=== PATIENT | female | born 1950 | race Two or more races ===

== ENCOUNTER 2017-09-27 16:29 | Outpatient (CLI) | payer MEDICARE, OTHER ==
[2017-09-27 17:39] LABS: EOSINOPHILS % (AUTO) 0.3 % (0.0-6.0); HEMATOCRIT 41 % (33-45); HEMOGLOBIN 13.7 g/dL (11.5-14.8); LYMPHOCYTES % (AUTO) 20.5 % (20.0-44.0); MEAN CORPUSCULAR HEMOGLOBIN 28 PG (26.0-33.0); MEAN CORPUSCULAR HGB CONC 34 g/dl (31.0-36.0); MEAN CORPUSCULAR VOLUME 83 fL (82-100); MONOCYTES # (AUTO) 1.5 /CMM (0.1-1.30); MONOCYTES % (AUTO) 10.1 % (2.0-12.0); NEUTROPHILS % (AUTO) 69.1 % (43.0-81.0); PLATELET COUNT (AUTO) 203 /CMM (150-450); RDW COEFFICIENT OF VARIATION 14.6 (11.5-15.0); RED BLOOD CELL COUNT(AUTO) 4.91 MIL/uL (4.0-5.2); WHITE BLOOD COUNT (AUTO) 14.5 K/uL (4.3-11.0)
[2017-09-27 17:55] LABS: ALBUMIN 3.6 g/dL (3.4-5.0); CALCIUM, SERUM 9.2 mg/dL (8.5-10.1); CREATININE 0.7 mg/dL (0.6-1.3)
== END 2017-09-27 23:59 | disposition home or self-care (01) ==
LOC: LAB 16:29
PROVIDERS: ATTEND Internal Medicine Cardiovascular Disease
DX: I51.7 Cardiomegaly (principal); I70.0 Atherosclerosis of aorta; J11.1 Influenza due to unidentified influenza virus with other respiratory manifestations; Z95.1 Presence of aortocoronary bypass graft
CPT/HCPCS: 36415; 71046; 80053-TC; 85025-TC

== ENCOUNTER 2017-10-17 07:27 | Day surgery (SDC) | payer MEDICARE, OTHER ==
[2017-10-17] MEDS ORDERED: BUPIVACAINE 0.5 % PF 150 MG/30 ML VIAL ONE (08:09)
[2017-10-17] MEDS ORDERED: DEXAMETHASONE SOD PHOSPHATE 10 MG/ML VIAL ONE (08:09)
[2017-10-17] MEDS ORDERED: IOHEXOL 0 ML IV ONE (08:09)
[2017-10-17] MEDS ORDERED: BETA ACET/BET NA PHOS MDV 6 MG/ML VIAL ONE (08:42)
== END 2017-10-17 09:50 | disposition home or self-care (01) ==
LOC: DS 07:27
PROVIDERS: ATTEND Anesthesiology
DX: M17.11 Unilateral primary osteoarthritis, right knee (principal); E11.9 Type 2 diabetes mellitus without complications; I48.91 Unspecified atrial fibrillation; I50.9 Heart failure, unspecified; I10 Essential (primary) hypertension; I27.20 Pulmonary hypertension, unspecified; M25.561 Pain in right knee
CPT/HCPCS: 73560-TC; A6209; J0702; J1100; J3490; Q9967; Z7610

== ENCOUNTER 2017-10-30 20:15 | Emergency (ER) | payer MEDICARE, OTHER ==
[~2017-10-30] VITALS: Ht 157.5 cm; Wt 89.4 kg
[2017-10-30 20:39] VITALS: BP 137/68
[2017-10-30] MEDS ORDERED: ACETAMINOPHEN W/ CODEINE#3 1 EA TABLET PO ONE (21:30)
== END 2017-10-30 21:09 | disposition home or self-care (01) ==
LOC: ER 20:22
DX: S20.211A Contusion of right front wall of thorax, initial encounter (principal); I10 Essential (primary) hypertension; Z95.2 Presence of prosthetic heart valve; W01.0XXA Fall on same level from slipping, tripping and stumbling without subsequent striking against object, initial encounter; Y93.E1 Activity, personal bathing and showering; Y92.89 Other specified places as the place of occurrence of the external cause; Y99.8 Other external cause status
CPT/HCPCS: A4606; Z7610

== ENCOUNTER 2017-12-06 07:25 | Day surgery (SDC) | payer MEDICARE, OTHER ==
[2018-04-03] MEDS ORDERED: METF-440 PO (08:15)
== END 2017-12-06 09:55 | disposition home or self-care (01) ==
LOC: DS 07:25
PROVIDERS: ATTEND Anesthesiology
DX: M17.0 Bilateral primary osteoarthritis of knee (principal); I10 Essential (primary) hypertension; E11.9 Type 2 diabetes mellitus without complications; I48.91 Unspecified atrial fibrillation; I50.9 Heart failure, unspecified; F17.200 Nicotine dependence, unspecified, uncomplicated; G47.33 Obstructive sleep apnea (adult) (pediatric); I27.20 Pulmonary hypertension, unspecified; Z95.2 Presence of prosthetic heart valve; Z79.899 Other long term (current) drug therapy; Z98.890 Other specified postprocedural states
CPT/HCPCS: 20610; 73560 ×2; 82962; A6209; Z7610

== ENCOUNTER 2018-03-28 14:35 | Outpatient (CLI) | payer MEDICARE, OTHER ==
[2018-03-28 17:03] LABS: BASOPHILS % (AUTO) 0.4 % (0.0-2.0); EOSINOPHILS % (AUTO) 1.2 % (0.0-6.0); HEMATOCRIT 45 % (33-45); HEMOGLOBIN 14.5 g/dL (11.5-14.8); LYMPHOCYTES # (AUTO) 2.9 /CMM (0.8-4.8); LYMPHOCYTES % (AUTO) 23.2 % (20.0-44.0); MEAN CORPUSCULAR HEMOGLOBIN 28 PG (26.0-33.0); MEAN CORPUSCULAR HGB CONC 32 g/dl (31.0-36.0); MEAN CORPUSCULAR VOLUME 86 fL (82-100); MONOCYTES # (AUTO) 0.8 /CMM (0.1-1.30); MONOCYTES % (AUTO) 6.6 % (2.0-12.0); NEUTROPHILS # (AUTO) 8.6 /CMM (1.8-8.9); NEUTROPHILS % (AUTO) 68.6 % (43.0-81.0); PLATELET COUNT (AUTO) 281 /CMM (150-450); RDW COEFFICIENT OF VARIATION 14.2 (11.5-15.0); RED BLOOD CELL COUNT(AUTO) 5.27 MIL/uL (4.0-5.2); WHITE BLOOD COUNT (AUTO) 12.6 K/uL (4.3-11.0)
[2018-03-28 17:21] LABS: DIGOXIN 0.73 ng/mL (0.90-2.00)
[2018-03-28 17:29] LABS: ALBUMIN 3.7 g/dL (3.4-5.0); BILIRUBIN,TOTAL 0.7 mg/dL (0.2-1.0); CALCIUM, SERUM 9.1 mg/dL (8.5-10.1); CREATININE 0.7 mg/dL (0.6-1.3); POTASSIUM 3.9 mmol/L (3.5-5.1); TOTAL PROTEIN, SERUM 8.1 g/dL (6.4-8.2)
== END 2018-03-28 23:59 | disposition home or self-care (01) ==
LOC: LAB 14:35
PROVIDERS: ATTEND Internal Medicine Cardiovascular Disease
DX: I11.0 Hypertensive heart disease with heart failure (principal); I50.9 Heart failure, unspecified; I48.91 Unspecified atrial fibrillation; J90 Pleural effusion, not elsewhere classified
CPT/HCPCS: 36415; 71046; 80053-TC; 80162-TC; 83880; 85025-TC

== ENCOUNTER 2018-04-02 19:04 | Inpatient (IN) | payer MEDICARE, OTHER ==
[~2018-04-02] VITALS: Ht 160 cm; Wt 84.8 kg
--- NOTE | 2018-04-02 19:04 | NUR ---
BB FAMILY; "SOB AND CHEST PAIN X 1 WEEK" VSS NO ACUTE DISTRESS AT THIS TIME A/OX4 ABLE TO MAKE NEEDS KNOWN. FAMILY AT BEDSIDE. BREATHING SHALLOW BUT OTHERWISE RATE WNL. WILL CONTINUE TO MONITOR FOR ANY CHANEGS DURING THE SHIFT.
[2018-04-02] MEDS ORDERED: ASPIRIN 325 MG TABLET PO ONE (19:30)
[2018-04-02] MEDS ORDERED: NITROGLYCERIN PACKET 1 GM PACKET TD ONE (19:30)
[2018-04-02 19:33] LABS: BASOPHILS # (AUTO) 0.1 /CMM (0.0-0.2); BASOPHILS % (AUTO) 0.8 % (0.0-2.0); EOSINOPHILS % (AUTO) 1.3 % (0.0-6.0); HEMATOCRIT 44 % (33-45); LYMPHOCYTES # (AUTO) 2.8 /CMM (0.8-4.8); LYMPHOCYTES % (AUTO) 25.4 % (20.0-44.0); MEAN CORPUSCULAR HEMOGLOBIN 26 PG (26.0-33.0); MEAN CORPUSCULAR HGB CONC 32 g/dl (31.0-36.0); MEAN CORPUSCULAR VOLUME 82 fL (82-100); MONOCYTES # (AUTO) 0.9 /CMM (0.1-1.30); NEUTROPHILS # (AUTO) 7.1 /CMM (1.8-8.9); NEUTROPHILS % (AUTO) 64.5 % (43.0-81.0); PLATELET COUNT (AUTO) 223 /CMM (150-450); RDW COEFFICIENT OF VARIATION 13.5 (11.5-15.0); RED BLOOD CELL COUNT(AUTO) 5.35 MIL/uL (4.0-5.2)
[2018-04-02] MEDS ORDERED: ASPIRIN 325 MG TABLET ONE (19:36)
[2018-04-02] MEDS ORDERED: NITROGLYCERIN PACKET 1 GM PACKET ONE (19:36)
[2018-04-02 19:46] LABS: CARBON DIOXIDE 26 mmol/L (21-32); CHLORIDE 103 mmol/L (98-107); CREATININE 0.9 mg/dL (0.6-1.3); GLUCOSE 119 mg/dL (74-106); SODIUM SERUM 137 mmol/L (136-145); UREA NITROGEN, BLOOD 10 mg/dL (7-18)
[2018-04-02 19:48] LABS: INR 1.15 (0.85-1.15)
[2018-04-02 19:53] LABS: TROPONIN I < 0.017 ng/mL (0.00-0.056)
[2018-04-02 20:00] LABS: ALANINE AMINOTRANSFERASE 14 U/L (12-78); ALBUMIN 3.5 g/dL (3.4-5.0); ALKALINE PHOSPHATASE 56 U/L (46-116); ASPARTATE AMINOTRANSFERASE 16 U/L (15-37); BILIRUBIN,DIRECT 0.3 mg/dL (0.0-0.2); BILIRUBIN,TOTAL 0.8 mg/dL (0.2-1.0); TOTAL PROTEIN, SERUM 7.9 g/dL (6.4-8.2)
--- NOTE | 2018-04-02 20:11 | NUR ---
PLANT HEALTH MANAGER NOTES PT ARRIVED ON TO THE UNIT AT 2010 VIA GURNEY. PT ABLE TO AMBULATE FROM GURNEY TO BED WITH STEADY GAIT. PT COMPLAINS OF CHEST PAIN LASTING FOR A WEEK AND SOB LASTING THE LAST 3-4 DAYS. PT HAS A RIGHT AC #20 IV, INTACT AND PATENT. ALL PATIENT BELONGINGS ARE ACCOUNTED FOR A DOCUMENTED PT TELE MONITORED AT AFIB RATE IN THE 70S. NO COMPLAINTS OF PAIN OR DISTRESS AT THIS TIME. PT DOES STATE THAT SHE FEELS REFLIEF FROM HER SOB WITH THE 2L OF O2 VIA NASAL CANNULA. ORIENTED PATIENT TO THE USE OF THE CALL LIGHT. SAFETY PRECAUTIONS IN PLACE, BED IN LOWEST LOCKED POSITION, X2 SIDE RAILS UP, AND CALL LIGHT WITHIN REACH. WILL CONTINUE TO MONITOR AND UPDATE PT ORDERS FROM THE MD BECOME AVAILABLE. Addendum: 04/02/18 at 2317 by YOLI ALEMAN RN INCORRECT TIME 2110
--- NOTE | 2018-04-02 20:18 | NUR ---
GAVE REPORT TO YOLI
[2018-04-02 21:30] VITALS: BP 108/55
[2018-04-02] MEDS ORDERED: FUROSEMIDE 40 MG/4 ML VIAL IV ONE (23:00)
[2018-04-02] MEDS ORDERED: Z GUARD REMEDY 2 OZ OINT TP PRN (23:00)
[2018-04-02] MEDS ORDERED: HYDROCODONE/APAP 5/325MG 1 EACH TABLET PO PRN (23:00)
[2018-04-02] MEDS ORDERED: ACETAMINOPHEN 325 MG TABLET PO PRN (23:00)
[2018-04-02] MEDS ORDERED: MAGNESIUM HYDROXIDE 30 ML UDC PO PRN (23:00)
[2018-04-02] MEDS ORDERED: MAG HYDROX/AL HYDROX/SIMETH 30 ML UDC PO PRN (23:00)
[2018-04-02] MEDS ORDERED: ONDANSETRON HCL/PF 4 MG/2 ML VIAL IVP PRN (23:00)
[2018-04-02] MEDS ORDERED: ENOXAPARIN SODIUM 40 MG/0.4 ML DISP.SYRIN SQ SCH (23:00)
[2018-04-02] MEDS ORDERED: MORPHINE SULFATE INJ 2 MG/ML DISP.SYRIN IV PRN (23:00)
--- NOTE | 2018-04-02 23:08 | NUR ---
RN NOTES PT REFUSED LOVENOX SATING SHE TAKES PLAVIX DAILY. PT ALSO REFUSED LASIX STATING SHE TAKES THEM AT HOME AND DOESN'T WANT TO TAKE THEM AT NIGHT. EDUCATED THE PATIENT ON THE IMPORTANCE OF BRINGING IN HOME MEDICATION LIST SO THAT A MEDICATION RECONCILIATION CAN BE COMPLETED. PT STATED THAT SHE WILL HAVE HER BRING THEM IN TOMORROW MORNING.
--- NOTE | 2018-04-02 23:55 | NUR ---
RN NOTES PT STATED THAT SHE TAKES ATIVAN AT HOME. SPOKE WITH WORD PROCESSOR TECHNICIAN KANIKA, GAVE ONE TIME ORDER OF ATIVAN PO 0.50MG. WILL ADMINISTER AND CONTINUE TO MONITOR.
[2018-04-03] VITALS (7 sets, daily range): BP systolic 96–124; BP diastolic 46–70
[2018-04-03] MEDS ORDERED: LORAZEPAM 0.5 MG TABLET PO ONE
[2018-04-03] MEDS ORDERED: LORAZEPAM 0.5 MG TABLET PO PRN
--- NOTE | 2018-04-03 06:40 | NUR ---
RN CLOSING NOTES PT RESTING IN CHAIR AT BEDSIDE. NO COMPLAINTS OF PAIN, SOB OR DISTRESS OVERNIGHT. PT HAS A RIGHT AC #20 IV, INTACT AND PATENT. PT TELE MONITORED AT AFIB RATE IN THE 70S. PT ON 2L VIA NASAL CANNULA. SAFETY PRECAUTIONS IN PLACE, BED IN LOWEST LOCKED POSITION, X2 SIDE RAILS UP, AND CALL LIGHT WITHIN REACH. WILL ENDORSE TO DAY SHIFT NURSE FOR CONTINUITY OF CARE.
[2018-04-03 07:02] LABS: BASOPHILS % (AUTO) 0.4 % (0.0-2.0); EOSINOPHILS % (AUTO) 2.1 % (0.0-6.0); HEMATOCRIT 40 % (33-45); HEMOGLOBIN 13.1 g/dL (11.5-14.8); LYMPHOCYTES # (AUTO) 2.9 /CMM (0.8-4.8); LYMPHOCYTES % (AUTO) 27.9 % (20.0-44.0); MEAN CORPUSCULAR HEMOGLOBIN 28 PG (26.0-33.0); MEAN CORPUSCULAR HGB CONC 33 g/dl (31.0-36.0); MEAN CORPUSCULAR VOLUME 85 fL (82-100); MONOCYTES # (AUTO) 0.9 /CMM (0.1-1.30); MONOCYTES % (AUTO) 8.5 % (2.0-12.0); NEUTROPHILS # (AUTO) 6.4 /CMM (1.8-8.9); NEUTROPHILS % (AUTO) 61.1 % (43.0-81.0); PLATELET COUNT (AUTO) 194 /CMM (150-450); RDW COEFFICIENT OF VARIATION 14.8 (11.5-15.0); RED BLOOD CELL COUNT(AUTO) 4.75 MIL/uL (4.0-5.2); WHITE BLOOD COUNT (AUTO) 10.5 K/uL (4.3-11.0)
[2018-04-03 07:25] LABS: CALCIUM, SERUM 8.5 mg/dL (8.5-10.1); CREATININE 0.7 mg/dL (0.6-1.3); PHOSPHORUS 4.3 mg/dL (2.5-4.9); POTASSIUM 4.2 mmol/L (3.5-5.1)
[2018-04-03 07:28] LABS: THYROID STIMULATING HORMONE 2.245 uIU/mL (0.358-3.74)
[2018-04-03] MEDS ORDERED: FURO40TA5 PO (08:15)
[2018-04-03] MEDS ORDERED: DIGO125T PO (08:15)
[2018-04-03] MEDS ORDERED: METH5TAB6 PO (08:15)
[2018-04-03] MEDS ORDERED: ESCI20TA PO (08:15)
[2018-04-03] MEDS ORDERED: POTA20TA83 PO (08:15)
[2018-04-03] MEDS ORDERED: ESOM40CA PO (08:15)
[2018-04-03] MEDS ORDERED: PANT40TA4 PO (08:15)
[2018-04-03] MEDS ORDERED: METO-356 PO (08:15)
[2018-04-03] MEDS ORDERED: METF500T6 PO (08:15)
[2018-04-03] MEDS ORDERED: LORA1TAB PO (08:15)
[2018-04-03] MEDS ORDERED: DRON400T2 PO (08:15)
[2018-04-03] MEDS ORDERED: ATOR40TA PO (08:15)
--- NOTE | 2018-04-03 09:00 | NUR ---
TELE OPENING NOTES PT IS AWAKE IN BED, A&O X4, COMPLAINS OF MILD CHEST PAIN. PT IS ON 2L NASAL CANNULA. TELE MONITOR INTACT WITH READINGS OF AFIB 84. PT IS AMBULATORY, AND HAS INTACT SKIN. IV SITE INTACT AND PATENT ON RIGHT AC. WILL FOLLOW UP WITH PT CHEST PAIN AND MONITOR PATIENT THROUGHOUT SHIFT.
[2018-04-03] MEDS ORDERED: Medication Not On Formulary EA (Esomeprazole Mag Trihydrate (Nexium) 40 MG) PO SCH (10:30)
[2018-04-03] MEDS: METFORMIN 500 MG TABLET PO SCH ×2 (11:11→17:36)
[2018-04-03] MEDS: PANTOPRAZOLE 40 MG TABLET.DR PO SCH (11:11)
[2018-04-03] MEDS: METHIMAZOLE (5MG) 5 MG TABLET PO SCH (11:11)
[2018-04-03] MEDS: METOPROLOL SUCCINATE 25 MG TAB.SR.24H PO SCH (11:12)
[2018-04-03] MEDS: POTASSIUM CHLORIDE 20 MEQ TAB.PRT.SR PO SCH (11:12)
[2018-04-03] MEDS: FUROSEMIDE 40 MG/4 ML VIAL IV SCH ×2 (11:13→15:04)
[2018-04-03] MEDS ORDERED: FEE PK DOSING 1 MIN EA MC ONE (12:48)
[2018-04-03] MEDS ORDERED: ENOXAPARIN SODIUM 80 MG/0.8 ML DISP.SYRIN SQ ONE (13:00)
[2018-04-03] MEDS ORDERED: VANCOMYCIN 0.75 GM in IV NS 0.9% 250 ML IV SCH (14:00)
[2018-04-03] MEDS: DIGOXIN 0.125 MG TABLET PO SCH (15:03)
[2018-04-03] MEDS: VANCOMYCIN 1 GM in IV NS 0.9% 250 ML IV SCH (16:41)
--- NOTE | 2018-04-03 18:44 | NUR ---
TELE CLOSING NOTES PT IS AWAKE, HER DAUGHTERS ARE AT BEDSIDE. PT IS COPING WELL WITH MEDICATIONS AND TREATMENT PLAN. PT CONTINUES TO RECEIVE ANTIBIOTICS THROUGHOUT THE END OF SHIFT. NO REACTION TO ANTIBIOTICS. IV SITE IS INTACT AND PATENT. SAFETY MEASURES WERE IMPLEMENTED FOR PT. WILL ENDORSE TO BULK MAIL CLERK.
[2018-04-03] MEDS: CEFTRIAXONE 2 G in IV NS 0.9% 100 ML IV SCH (19:20)
--- NOTE | 2018-04-03 20:39 | NUR ---
Patient is alert and pleasant. Lives locally with family, She is ambulatory and independent with adl's. Family involved and supportive. She plan to go home when discharge, family will provide ride. Addendum: 04/03/18 at 2039 by MATTHEW ELAINE RN Amended: Links added.
--- NOTE | 2018-04-03 20:44 | NUR ---
Met with patient and two daughters at bedside. Patient is alert and pleasant. She lives locally with spouse in a single level dwelling. She ambulates with a walker as needed and independent with adl's. Has adequate DME: walker, wheelchair, shower chair and raised toilet seat. She also received IHSS and family are involved and supportive.She plan to go home when discharge, family will provide ride. Addendum: 04/03/18 at 2043 by MATTHEW ELAINE RN Amended: Links added.
[2018-04-03] MEDS: ATORVASTATIN 40 MG TABLET PO SCH (21:13)
[2018-04-03] MEDS: LORAZEPAM 1 MG TABLET PO PRN (21:23)
[2018-04-03] MEDS ORDERED: FUROSEMIDE 40 MG/4 ML VIAL ONE (23:47)
[2018-04-04] VITALS (18 sets, daily range): BP systolic 77–154; BP diastolic 29–89
[2018-04-04] MEDS: FUROSEMIDE 40 MG/4 ML VIAL IV SCH (00:03)
[2018-04-04] MEDS: VANCOMYCIN 1 GM in IV NS 0.9% 250 ML IV SCH ×2 (01:01→13:31)
[2018-04-04] MEDS: diphenhydrAMINE HCL ELIX 25 MG/10 ML UDC PO PRN (02:15)
[2018-04-04] MEDS: CEFTRIAXONE 2 G in IV NS 0.9% 100 ML IV SCH ×2 (02:59→18:09)
[2018-04-04 07:04] LABS: BASOPHILS % (AUTO) 0.3 % (0.0-2.0); EOSINOPHILS % (AUTO) 1.6 % (0.0-6.0); HEMATOCRIT 45 % (33-45); HEMOGLOBIN 14.8 g/dL (11.5-14.8); LYMPHOCYTES # (AUTO) 2.9 /CMM (0.8-4.8); LYMPHOCYTES % (AUTO) 21.1 % (20.0-44.0); MEAN CORPUSCULAR HEMOGLOBIN 28 PG (26.0-33.0); MEAN CORPUSCULAR HGB CONC 33 g/dl (31.0-36.0); MEAN CORPUSCULAR VOLUME 84 fL (82-100); MONOCYTES # (AUTO) 0.9 /CMM (0.1-1.30); MONOCYTES % (AUTO) 6.6 % (2.0-12.0); NEUTROPHILS # (AUTO) 9.8 /CMM (1.8-8.9); NEUTROPHILS % (AUTO) 70.4 % (43.0-81.0); PLATELET COUNT (AUTO) 225 /CMM (150-450); RDW COEFFICIENT OF VARIATION 14.4 (11.5-15.0); RED BLOOD CELL COUNT(AUTO) 5.39 MIL/uL (4.0-5.2); WHITE BLOOD COUNT (AUTO) 13.9 K/uL (4.3-11.0)
[2018-04-04] MEDS: PANTOPRAZOLE 40 MG TABLET.DR PO SCH (07:30)
[2018-04-04 07:32] LABS: ALBUMIN 3.4 g/dL (3.4-5.0); BILIRUBIN,TOTAL 0.5 mg/dL (0.2-1.0); CALCIUM, SERUM 9.1 mg/dL (8.5-10.1); CREATININE 0.8 mg/dL (0.6-1.3); MAGNESIUM 1.9 mg/dL (1.8-2.4); PHOSPHORUS 4.2 mg/dL (2.5-4.9); POTASSIUM 3.8 mmol/L (3.5-5.1)
--- NOTE | 2018-04-04 08:09 | NUR ---
TELE OPENING NOTES PT IS A&O X3, REMAINS SLEEPING ON HER CHAIR NEAR THE BEDSIDE. PT CURRENTLY HAS NO COMPLAINTS. PT IS ON 2L NASAL CANNULA, IS NOT SEEN IN RESPIRATORY DISTRESS. IV SITE PATENT AND INTACT ON LEFT HAND, #20 GAUGE. PT IS NPO UNTIL HER PROCEDURE FOR AM. WILL CONTINUE TO MONITOR THROUGHOUT SHIFT.
[2018-04-04] MEDS: POTASSIUM CHLORIDE 20 MEQ TAB.PRT.SR PO SCH (09:00)
[2018-04-04] MEDS: METHIMAZOLE (5MG) 5 MG TABLET PO SCH (09:00)
[2018-04-04] MEDS: METOPROLOL SUCCINATE 25 MG TAB.SR.24H PO SCH (09:00)
[2018-04-04] MEDS: DIGOXIN 0.125 MG TABLET PO SCH (09:00)
[2018-04-04] MEDS: METFORMIN 500 MG TABLET PO SCH ×2 (09:00→18:08)
[2018-04-04] MEDS: ESCITALOPRAM OXALATE (10 MG) 10 MG TABLET PO SCH (09:00)
--- NOTE | 2018-04-04 11:00 | NUR ---
PT WAS NPO FOR TRANSESOPHAGEAL PROCEDURE. PT WILL NOT BE GIVEN AM PO MEDICATIONS DUE TO PROCEDURE AND NPO ORDER. ONLY GIVEN VANCOMYCIN IV MEDICATION.
--- NOTE | 2018-04-04 15:16 | NUR ---
PT TRANSFERRED TO ICU FOR TRANSESOPHAGEAL ECHO PROCEDURE. PT WAS UNDER NO DISTRESS, NO RESPIRATORY DISTRESS, DENIES PAIN, AND VITAL SIGNS STABLE. REPORT WAS GIVEN TO KHUSHBU BETTS.
--- NOTE | 2018-04-04 15:30 | NUR ---
NYLON OPERATOR NOTES RECEIVED PATIENT AOX3 , NOT IN ACUTE DISTRESS , DENIES SOB AND DISCOMFORT , PLACED PT ON 2LPM NC WITH SPO2 OF 97% , AFIV 75 ON BEDSIDE MONITOR , INSERTED IV @ RFA # 20 PATENT AND INTACT WITH NS @ TKO , ATTACHED PT TO MONITOR , VSS , CONSENT VERIFIED , WILL CONTINUE TO MONITOR
[2018-04-04] MEDS ORDERED: ANESTHESIA TRAY IN PYXIS 1 EA TRAY MC ONE (15:36)
--- NOTE | 2018-04-04 16:00 | NUR ---
PROJECT DEVELOPER NOTES TIME OUT WITH MD AND ANESTHESIOLOGIST DONE , PROCEDURE STARTED , VSS , WILL CONTINUE TO MONITOR .
--- NOTE | 2018-04-04 16:28 | NUR ---
TANDEM MILL ROLLER NOTES PATIENT STABLE S/P MARLON , NO SIGNS OF DISTRESS NOTED , ON 4LPM NC WITH SPO2 OF 100% , VSS , SEDATED BUT AROUSES EASILY , RESUME PRE OP ORDERS PER DR VUONG , WILL CONTINUE TO MONITOR
[2018-04-04] MEDS: FUROSEMIDE 20 MG/2 ML VIAL IV SCH (17:00)
--- NOTE | 2018-04-04 17:30 | NUR ---
INSPECTOR WELDED PARTS NOTES PATIENT TRANSFERRED TO ROOM 326-1 VIA ACLS PROTOCOL , VSS , AFEBRILE , REPORT GIVEN TO FRANCESCO FOR CONTINUITY OF CARE
--- NOTE | 2018-04-04 18:42 | NUR ---
MS CLOSING NOTES PT IS AWAKE, SITTING ON A CHAIR NEAR THE BED AND IV PUMP WITH DAUGHTER FLACA, AT BEDSIDE. PT IS A&O X3, NO CHANGES IN LOC. PT IS AMBULATORY, AND CONTINENT. PT DID NOT RECEIVE AM PO MEDICATIONS.PT HAS TWO IV SITES L HAND #20 AND R FOREARM #20 INTACT AND PATENT. PT HAD PROCEDURE TRANSESOPHAGEAL ECHO AROUND 1500. PT DENIES PAIN, AND SOB. BLOOD CULTURES X3 PENDING RESULTS. ALL SAFETY MEASURES WERE IMPLEMENTED. WILL ENDORSE TO CROP CONSULTANT.
--- NOTE | 2018-04-04 19:42 | NUR ---
MS RN NOTES RECEIVED PT ON BED. A/O X3. ON NASAL CANNULA 2L SATURATING WELL. IV ACCESS ON LHAND #20 AND RIGHT HAND FA #20 SL. NO SIGN OF INFILTRATION. HEAD OF BED ELEVATED. SIDE RAILS UP. CALL LIGHT WITHIN REACH. BED ALARM ON. WILL CONTINUE TO MONITOR PT CLOSELY.
[2018-04-04] MEDS: ATORVASTATIN 40 MG TABLET PO SCH (21:04)
[2018-04-04] MEDS: LORAZEPAM 1 MG TABLET PO PRN (21:08)
[2018-04-05] MEDS: VANCOMYCIN 1 GM in IV NS 0.9% 250 ML IV SCH ×2 (02:05→13:30)
[2018-04-05] MEDS: CEFTRIAXONE 2 G in IV NS 0.9% 100 ML IV SCH ×2 (03:03→15:21)
--- NOTE | 2018-04-05 06:26 | NUR ---
MS RN NOTES NO ACUTE CHANGES NOTED DURING THE SHIFT. PROVIDED COMFORT AND SAFETY. DUE MEDS GIVEN. HEAD OF BED ELEVATED. SIDE RAILS UP. CALL LIGHT IS PLACED WITHIN REACH. BED ALARM ON. WILL ENDORSE TO THE AM NURSE FOR CONTINUITY OF CARE.
[2018-04-05] MEDS: PANTOPRAZOLE 40 MG TABLET.DR PO SCH (06:39)
[2018-04-05 07:13] LABS: BASOPHILS % (AUTO) 0.4 % (0.0-2.0); HEMATOCRIT 43 % (33-45); LYMPHOCYTES # (AUTO) 2.7 /CMM (0.8-4.8); LYMPHOCYTES % (AUTO) 24.8 % (20.0-44.0); MEAN CORPUSCULAR HEMOGLOBIN 27 PG (26.0-33.0); MEAN CORPUSCULAR HGB CONC 33 g/dl (31.0-36.0); MEAN CORPUSCULAR VOLUME 85 fL (82-100); MONOCYTES # (AUTO) 0.7 /CMM (0.1-1.30); MONOCYTES % (AUTO) 6.8 % (2.0-12.0); NEUTROPHILS # (AUTO) 7.2 /CMM (1.8-8.9); PLATELET COUNT (AUTO) 205 /CMM (150-450); RDW COEFFICIENT OF VARIATION 13.8 (11.5-15.0); RED BLOOD CELL COUNT(AUTO) 5.11 MIL/uL (4.0-5.2); WHITE BLOOD COUNT (AUTO) 10.9 K/uL (4.3-11.0)
[2018-04-05 07:32] LABS: CALCIUM, SERUM 8.9 mg/dL (8.5-10.1); CREATININE 0.7 mg/dL (0.6-1.3); POTASSIUM 3.5 mmol/L (3.5-5.1)
--- NOTE | 2018-04-05 07:54 | NUR ---
MS RN OPENING NOTE RECEIVED PATIENT IN BED, SLEEPING, EASILY AROUSED WITH VERBAL STIMULI. ORIENTED X4. ON ROOM AIR, TOLERATING WELL. IN NO APPARENT DISTRESS OR DISCOMFORT AT THIS TIME. DENIES PAIN AND SOB, RESPIRATIONS EVEN AND UNLABORED. ABLE TO COMMUNICATE NEEDS VERBALLY. PATIENT IS CONTINENT WITH BATHROOM PRIVILEGES. IV CANALS ON LEFT HAND 20G AND R FOREARM 20G. SL. PATENT AND INTACT. PATIENT KEPT CLEAN AND COMFORTABLE, SAFETY MEASURES IN PLACE, BED IN LOW LOCKED POSITION, SIDE RAILS UP X2, CALL LIGHT WITHIN EASY REACH. WILL CONTINUE TO MONITOR.
[2018-04-05 08:00] VITALS: BP 120/53
[2018-04-05] MEDS: DIGOXIN 0.125 MG TABLET PO SCH (08:47)
[2018-04-05] MEDS: POTASSIUM CHLORIDE 20 MEQ TAB.PRT.SR PO SCH (08:47)
[2018-04-05] MEDS: ESCITALOPRAM OXALATE (10 MG) 10 MG TABLET PO SCH (08:47)
[2018-04-05] MEDS: METFORMIN 500 MG TABLET PO SCH ×2 (08:47→16:13)
[2018-04-05 08:48] VITALS: BP 120/53
[2018-04-05] MEDS: METHIMAZOLE (5MG) 5 MG TABLET PO SCH (08:48)
[2018-04-05] MEDS: METOPROLOL SUCCINATE 25 MG TAB.SR.24H PO SCH (08:48)
[2018-04-05] MEDS: FUROSEMIDE 20 MG/2 ML VIAL IV SCH (08:49)
[2018-04-05] MEDS ORDERED: POTASSIUM CHLORIDE 20 MEQ POWDER PACKET PO ONE (10:30)
[2018-04-05] MEDS ORDERED: FUROSEMIDE 40 MG TABLET PO SCH (10:30)
[2018-04-05] MEDS ORDERED: CEFT2VIA14 IV (11:39)
[2018-04-05] MEDS ORDERED: RXVAN XX (11:39)
[2018-04-05] MEDS ORDERED: VANCOMYCIN 1.25 GM in IV D5W 500 ML IV SCH (14:00)
[2018-04-05] MEDS ORDERED: VANCOMYCIN IV ONE (14:30)
[2018-04-05] MEDS ORDERED: D5W IV ONE (14:30)
[2018-04-05] MEDS: diphenhydrAMINE HCL ELIX 25 MG/10 ML UDC PO PRN (15:21)
--- NOTE | 2018-04-05 16:52 | NUR ---
RN NOTES: PICCLINE KIT, PRECAUTIONS KIT, AND GLOVES AT BEDSIDE FOR PICC LINE INSERTION. EVELYNE BETTS NOTIFIED
--- NOTE | 2018-04-05 17:40 | NUR ---
PICC LINE INSERTION DONE BY DR ONEIL CHOI, LEGAL JOB TITLES AT BEDSIDE. PATENT AND INTACT. WILL PROCEED TO DISCHARGE PATIENT HOME.
--- NOTE | 2018-04-05 18:55 | NUR ---
MS CASING PULLER NOTE DISCHARGE ORDER RECEIVED. PATIENT IS TO BE DC-ED HOME WITH HOME HEALTH CARE TO CONTINUE ANTIBIOTIC TREATMENT VIA NEWLY INSERTED PICC LINE. CASE MANAGEMENT ARRANGED THE FOLLOW UP CARE. PATIENT IS ALERT/ORIENTEDX4, IN NO APPARENT DISTRESS OR DISCOMFORT AT THIS TIME, DENIES CHEST PAIN AND SOB. PATIENT IS STABLE, VITAL SIGNS ARE STABLE. DISCHARGE INSTRUCTIONS AND ORDERS WAS PREPARED VIA EXITCARE. VALUABLE CHECKED AND ACCOUNTED FOR. ALL PAPERWORK SIGNED, PROVIDED TO THE PATIENT AND COPIES PLACED IN CHART. PATIENT IS AT GOOD UNDERSTANDING OF THE INSTRUCTIONS, PRESCRIBED MEDICATIONS, FOLLOWUP CARE AND CURRENT HEALTH CONDITION. IV CANALS REMOVED ON BILATERAL EXTREMITIES, TIPS ARE INTACT. PICC LINE REMAINS IN PLACE AND IS INTACT. ID BAND REMOVED. PATIENT IS GOING TO BE TAKEN HOME BY THE DAUGHTER. LEFT THE UNIT VIA WHEELCHAIR ACCOMPANIED BY JUSTINA DANIELSON AND DAUGHTER AT 1850.
[2018-04-06] MEDS ORDERED: VANCOMYCIN 1.25 GM in IV D5W 500 ML IV SCH (02:00)
== END 2018-04-05 19:00 | disposition home or self-care (01) | DRG 292 ==
LOC: ER 19:08 → TELE 20:55 → MED 04-04 10:16
PROVIDERS: ADMIT Nurse Practitioner Acute Care; ATTEND Nurse Practitioner Acute Care
PROC: B246ZZ4 Ultrasonography of Right and Left Heart, Transesophageal (ICD-10-PCS; principal; 2018-04-04)
PROC: 05HB33Z Insertion of Infusion Device into Right Basilic Vein, Percutaneous Approach (ICD-10-PCS; 2018-04-05)
PROC: B54MZZA Ultrasonography of Right Upper Extremity Veins, Guidance (ICD-10-PCS; 2018-04-05)
PROC: 02HV33Z Insertion of Infusion Device into Superior Vena Cava, Percutaneous Approach (ICD-10-PCS; 2018-04-05)
PROC: B548ZZA Ultrasonography of Superior Vena Cava, Guidance (ICD-10-PCS; 2018-04-05)
DX: I11.0 Hypertensive heart disease with heart failure (principal); J98.11 Atelectasis; I38 Endocarditis, valve unspecified; I50.33 Acute on chronic diastolic (congestive) heart failure; E78.5 Hyperlipidemia, unspecified; I25.10 Atherosclerotic heart disease of native coronary artery without angina pectoris; Z95.3 Presence of xenogenic heart valve; Z95.1 Presence of aortocoronary bypass graft; Z82.49 Family history of ischemic heart disease and other diseases of the circulatory system; Z82.3 Family history of stroke; Z80.8 Family history of malignant neoplasm of other organs or systems; I48.91 Unspecified atrial fibrillation; E66.9 Obesity, unspecified; Z68.33 Body mass index [BMI] 33.0-33.9, adult; I27.20 Pulmonary hypertension, unspecified; M17.11 Unilateral primary osteoarthritis, right knee; G47.33 Obstructive sleep apnea (adult) (pediatric); Z72.0 Tobacco use; I48.2 Chronic atrial fibrillation; E11.65 Type 2 diabetes mellitus with hyperglycemia
CPT/HCPCS: 36415; 71045-TC; 80048-TC; 80053-TC; 80061-TC; 80076-TC; 80162-TC; 80202-TC; 83735-TC; 83880; 84100-TC; 84443-TC; 84484-TC; 85025-TC; 85730-TC; 87040-TC; 87081-TC; 87186-TC; 93307-TC; 93312-TC; A4606; C1751; J0696; J1650; J1940; J3370; J7030; J7040; J7050; J7060; Q0163; Z7610

== ENCOUNTER 2018-04-20 21:44 | Inpatient (IN) | payer MEDICARE, OTHER ==
[~2018-04-20] VITALS: Ht 160 cm; Wt 83.0 kg
[~2018-04-20 21:44] MED LIST: ATOR40TA PO; CEFT2VIA14 IV; DIGO125T PO; DRON400T2 PO; ESCI20TA PO; ESOM40CA PO; FURO40TA5 PO; LORA1TAB PO; METF500T6 PO; METH5TAB6 PO; METO-356 PO; PANT40TA4 PO; POTA20TA83 PO; RXVAN XX
--- NOTE | 2018-04-20 21:56 | NUR ---
PT TO BED 5 VIA WC. PT BIB DAUGHTER C/O LEFT HAND SWELLING AND PAIN SINCE 3 DAYS AGO. PT ON ANTIBIOTICS AT HOME DUE TO HAVING HEART VALVE INFECTION DIAGNOSED 2 WEEKS AGO. HEART VALVE REPLACEMENT X 4 YEARS AGO. PT PLACED IN GOWN AND ON BONDING AND COMPOSITE FABRICATOR. VSS/RESP EVEN UNLABORED/NAD NOTED/SKIN WARM AND DRY/AFEBRILE/DENIES N-V-D/AOX4. AWAITNG MD GANT.
[2018-04-20] MEDS ORDERED: MORPHINE SULFATE INJ 4 MG/ML DISP.SYRIN ONE (22:30)
[2018-04-20] MEDS ORDERED: MORPHINE SULFATE INJ 2 MG/ML DISP.SYRIN IV ONE (22:30)
--- NOTE | 2018-04-20 22:38 | NUR ---
BLOOD DRAWN FROM PICC LINE FOR LAB.
[2018-04-20 22:43] LABS: BASOPHILS # (AUTO) 0.1 /CMM (0.0-0.2); BASOPHILS % (AUTO) 1.1 % (0.0-2.0); EOSINOPHILS % (AUTO) 1.3 % (0.0-6.0); HEMATOCRIT 41 % (33-45); LYMPHOCYTES # (AUTO) 2.5 /CMM (0.8-4.8); LYMPHOCYTES % (AUTO) 21.9 % (20.0-44.0); MEAN CORPUSCULAR HEMOGLOBIN 26 PG (26.0-33.0); MEAN CORPUSCULAR HGB CONC 32 g/dl (31.0-36.0); MEAN CORPUSCULAR VOLUME 84 fL (82-100); MONOCYTES # (AUTO) 0.9 /CMM (0.1-1.30); MONOCYTES % (AUTO) 7.4 % (2.0-12.0); NEUTROPHILS # (AUTO) 7.9 /CMM (1.8-8.9); NEUTROPHILS % (AUTO) 68.3 % (43.0-81.0); PLATELET COUNT (AUTO) 256 /CMM (150-450); RDW COEFFICIENT OF VARIATION 14.9 (11.5-15.0); RED BLOOD CELL COUNT(AUTO) 4.93 MIL/uL (4.0-5.2); WHITE BLOOD COUNT (AUTO) 11.6 K/uL (4.3-11.0)
[2018-04-20] MEDS ORDERED: ONDANSETRON HCL/PF 4 MG/2 ML VIAL ONE (22:45)
[2018-04-20 22:51] LABS: CALCIUM, SERUM 8.8 mg/dL (8.5-10.1); CREATININE 0.8 mg/dL (0.6-1.3); POTASSIUM 3.6 mmol/L (3.5-5.1)
[2018-04-20] MEDS ORDERED: ONDANSETRON HCL/PF - ER 4 MG/2 ML VIAL IV ONE (23:00)
--- NOTE | 2018-04-20 23:06 | NUR ---
XRAY AT BEDSIDE.
--- NOTE | 2018-04-20 23:20 | NUR ---
LAB AT BEDSIDE TO DRAW BLOOD CULT PER MD ORDERS.
[2018-04-20 23:21] LABS: B-TYPE NATRIURETIC PEPTIDE 1824 PG/ML (0-125)
[2018-04-20 23:23] LABS: TROPONIN I < 0.017 ng/mL (0.00-0.056)
--- NOTE | 2018-04-20 23:52 | NUR ---
16 FR noonan catheter inserted per sterile protocal. Immediate output 200ML of urine, pale color, clarity clear.
[2018-04-21] MEDS ORDERED: FUROSEMIDE 40 MG/4 ML VIAL IV ONE
[2018-04-21] MEDS ORDERED: FUROSEMIDE 40 MG/4 ML VIAL ONE (00:03)
--- NOTE | 2018-04-21 00:09 | NUR ---
EMT AT BEDSIDE FOR EKG.
--- NOTE | 2018-04-21 00:21 | NUR ---
REPORT GIVEN TO ALPESH GARCIA FOR HOMAR. PT ADMIT TO TELE RM 320.1.
[2018-04-21 00:30] VITALS: BP 147/67
--- NOTE | 2018-04-21 00:38 | NUR ---
PT TRANSPORTED TO TELE 320.1 VIA STRETCHER ON HOG GRADER WITH RN PER ACLS PROTOCOL.
--- NOTE | 2018-04-21 01:30 | NUR ---
MS/RN PATIENT AWAKE, ALERT, ORIENTED, COMFORTABLE, NO C/O PAIN, NO DISTRESS NOTED, ADMISSION DONE PER PROTOCOL, PHOTOS TAKEN ON SKIN ABNORMAL FINDINGS, PLAN OF CARE DISCUSSED WITH THE PATIENT AND THE DAUGHTER, VERBALIZED UNDERSTANDING AND AGREEMENT TO THE PLAN OF CARE, INSTRUCTED PATIENT TO USE CALL LIGHT FOR ANY ASSISTANCE, ABLE TO RETURN DEMO. WILL MONITOR.
[2018-04-21] MEDS ORDERED: IV NS 0.9% 1,000 ML IV PRN (02:25)
[2018-04-21] MEDS ORDERED: MAGNESIUM HYDROXIDE 30 ML UDC PO PRN (02:30)
[2018-04-21] MEDS ORDERED: VANCOMYCIN 1 GM in IV D5W 250 ML IV SCH (02:30)
[2018-04-21] MEDS ORDERED: ONDANSETRON HCL/PF 4 MG/2 ML VIAL IVP PRN (02:30)
[2018-04-21] MEDS ORDERED: *INSULIN REGULAR(HUMULIN R)HUM 100 UNIT/ML VIAL SQ PRN (02:30)
[2018-04-21] MEDS ORDERED: MORPHINE SULFATE INJ 4 MG/ML DISP.SYRIN IV PRN (02:30)
[2018-04-21] MEDS ORDERED: DEXTROSE 50%-WATER 50 ML DISP.SYRIN IV PRN (02:30)
[2018-04-21] MEDS ORDERED: ZOLPIDEM TARTRATE 5 MG TABLET PO PRN (02:30)
[2018-04-21] MEDS ORDERED: MAG HYDROX/AL HYDROX/SIMETH 30 ML UDC PO PRN (02:30)
[2018-04-21] MEDS ORDERED: HYDROCODONE/APAP 5/325MG 1 EACH TABLET PO PRN (02:30)
[2018-04-21] MEDS ORDERED: Z GUARD REMEDY 2 OZ OINT TP PRN (02:30)
[2018-04-21 04:00] VITALS: BP 114/67
[2018-04-21] MEDS ORDERED: VANCOMYCIN 1 GM in IV D5W 250 ML IV ONE (04:30)
[2018-04-21] MEDS ORDERED: VANCOMYCIN 1 GM VIAL ONE (04:36)
[2018-04-21] MEDS: BLOOD SUGAR DIAGNOSTIC 1 EACH STRIP IN SCH ×4 (06:41→22:28)
[2018-04-21] MEDS: INSULIN REGULAR, HUMAN 100 UNIT/ML 3 ML VIAL SQ PRN ×2 (06:44→11:58)
--- NOTE | 2018-04-21 06:50 | NUR ---
MS/RN PATIENT IS AWAKE BUT STILL SLEEPY, NO C/O PAIN, NO DISTRESS NOTED, ALL NEEDS ATTENDED AT THIS TIME. WILL CONTINUE TO MONITOR.
--- NOTE | 2018-04-21 07:10 | NUR ---
rn telephone triage initial notes Received patient in bed, asleep, head of bed elevated, no SOB or distress noted, on 02 @ 2lpm via NC and tolerated well. IV intact and patent HL only. Huertas in placed attached to drainage bag. No facial grimace noted. On tele monitor SR with BBB heart rate of 83. Call light with in patient reach, will continue to monitor accordingly.
[2018-04-21 07:25] LABS: BASOPHILS % (AUTO) 0.4 % (0.0-2.0); EOSINOPHILS % (AUTO) 1.7 % (0.0-6.0); HEMATOCRIT 40 % (33-45); LYMPHOCYTES # (AUTO) 2.1 /CMM (0.8-4.8); MEAN CORPUSCULAR HEMOGLOBIN 28 PG (26.0-33.0); MEAN CORPUSCULAR HGB CONC 32 g/dl (31.0-36.0); MEAN CORPUSCULAR VOLUME 85 fL (82-100); MONOCYTES # (AUTO) 1.1 /CMM (0.1-1.30); MONOCYTES % (AUTO) 9.7 % (2.0-12.0); NEUTROPHILS # (AUTO) 8.1 /CMM (1.8-8.9); NEUTROPHILS % (AUTO) 70.2 % (43.0-81.0); PLATELET COUNT (AUTO) 229 /CMM (150-450); RDW COEFFICIENT OF VARIATION 15.1 (11.5-15.0); RED BLOOD CELL COUNT(AUTO) 4.73 MIL/uL (4.0-5.2); WHITE BLOOD COUNT (AUTO) 11.6 K/uL (4.3-11.0)
[2018-04-21] MEDS ORDERED: FEE PK DOSING 1 MIN EA MC ONE (07:36)
[2018-04-21 07:40] LABS: CALCIUM, SERUM 8.7 mg/dL (8.5-10.1); CREATININE 0.8 mg/dL (0.6-1.3); MAGNESIUM 1.9 mg/dL (1.8-2.4); PHOSPHORUS 5.1 mg/dL (2.5-4.9); POTASSIUM 3.8 mmol/L (3.5-5.1)
[2018-04-21 08:00] VITALS: BP 127/77
[2018-04-21] MEDS: ESCITALOPRAM OXALATE (10 MG) 10 MG TABLET PO SCH (08:16)
[2018-04-21] MEDS: DIGOXIN 0.125 MG TABLET PO SCH (08:17)
[2018-04-21] MEDS: DRONEDARONE HYDROCHLORIDE 400 MG TABLET PO SCH ×2 (08:17→16:52)
[2018-04-21] MEDS: FUROSEMIDE 40 MG TABLET PO SCH ×2 (08:17→08:41)
[2018-04-21] MEDS: POTASSIUM CHLORIDE 20 MEQ TAB.PRT.SR PO SCH ×4 (08:17→12:07)
[2018-04-21] MEDS: METOPROLOL SUCCINATE 25 MG TAB.SR.24H PO SCH (08:17)
[2018-04-21] MEDS: METHIMAZOLE (5MG) 5 MG TABLET PO SCH (08:17)
[2018-04-21] MEDS: PANTOPRAZOLE 40 MG TABLET.DR PO SCH (08:17)
[2018-04-21] MEDS: ENOXAPARIN SODIUM 40 MG/0.4 ML DISP.SYRIN SQ SCH (08:18)
[2018-04-21] MEDS: FUROSEMIDE 40 MG/4 ML VIAL IV SCH ×3 (08:42→16:52)
[2018-04-21] MEDS ORDERED: CEFTRIAXONE 2 G in IV D5W 100 ML IV SCH (09:00)
[2018-04-21] MEDS ORDERED: Medication Not On Formulary EA (Ceftriaxone Sodium (Rocephin) 2 GM) IV SCH (09:00)
--- NOTE | 2018-04-21 09:22 | NUR ---
ms rn notes Held lasix tablet as ordered by Dr. Oakley, held potassium 1st dose, already given potassium tablet routine. All orders carried out and noted.
[2018-04-21 16:00] VITALS: BP 124/51
[2018-04-21] MEDS: ACETAMINOPHEN 325 MG TABLET PO PRN (16:52)
--- NOTE | 2018-04-21 16:52 | NUR ---
ms rn notes Held lasix IV due to bp of 111/49 Dr. Vee on site and made aware and amenable. All orders carried out and noted.
--- NOTE | 2018-04-21 16:55 | NUR ---
ms rn notes Informed Pharmacist Jonah regarding vancomycin level of 25 and ordered to Hold 5pm vanco dose.
[2018-04-21] MEDS ORDERED: VANCOMYCIN 1.25 GM in IV D5W 500 ML IV SCH (17:00)
--- NOTE | 2018-04-21 19:14 | NUR ---
ms rn closing notes All needs provided, attended, and anticipated. Patient in stable condition. Endorsed to next shift RN to continue care. Call light with in patient reach.
--- NOTE | 2018-04-21 19:30 | NUR ---
MS/RN RECEIVE PATIENT APPEAR SLEEPING, APPEAR COMFORTABLE, BREATHING EVEN AND UNLABORED, CALL LIGHT IN REACH. WILL MONITOR.
[2018-04-21 20:00] VITALS: BP 107/54
[2018-04-21] MEDS: ATORVASTATIN 40 MG TABLET PO SCH (21:28)
[2018-04-21] MEDS: INSULIN GLARGINE, 100 UNIT/ML CARTRIDGE SQ SCH (22:00)
[2018-04-21] MEDS: LORAZEPAM 1 MG TABLET PO PRN (22:53)
--- NOTE | 2018-04-21 22:56 | NUR ---
MS/RN ATIVAN 1 MG PO WAS GIVEN PER PATIENT'S REQUEST FOR SLEEP. WILL MONITOR.
[2018-04-21] MEDS: VANCOMYCIN 1.25 GM in IV D5W 500 ML IV SCH (23:17)
[2018-04-22] MEDS: INSULIN REGULAR, HUMAN 100 UNIT/ML 3 ML VIAL SQ PRN (06:44)
[2018-04-22 06:46] LABS: BASOPHILS % (AUTO) 0.3 % (0.0-2.0); EOSINOPHILS % (AUTO) 0.9 % (0.0-6.0); HEMATOCRIT 40 % (33-45); HEMOGLOBIN 12.9 g/dL (11.5-14.8); LYMPHOCYTES # (AUTO) 2.1 /CMM (0.8-4.8); LYMPHOCYTES % (AUTO) 15.4 % (20.0-44.0); MEAN CORPUSCULAR HEMOGLOBIN 27 PG (26.0-33.0); MEAN CORPUSCULAR HGB CONC 32 g/dl (31.0-36.0); MEAN CORPUSCULAR VOLUME 84 fL (82-100); MONOCYTES # (AUTO) 0.9 /CMM (0.1-1.30); MONOCYTES % (AUTO) 6.9 % (2.0-12.0); NEUTROPHILS # (AUTO) 10.2 /CMM (1.8-8.9); NEUTROPHILS % (AUTO) 76.5 % (43.0-81.0); PLATELET COUNT (AUTO) 221 /CMM (150-450); RDW COEFFICIENT OF VARIATION 14.8 (11.5-15.0); RED BLOOD CELL COUNT(AUTO) 4.79 MIL/uL (4.0-5.2); WHITE BLOOD COUNT (AUTO) 13.3 K/uL (4.3-11.0)
[2018-04-22] MEDS: BLOOD SUGAR DIAGNOSTIC 1 EACH STRIP IN SCH ×4 (06:50→21:07)
--- NOTE | 2018-04-22 07:00 | NUR ---
RN INITIAL NOTES PT AWAKE AND ALERT, SEMI-FOWLERS POSITION. COMPLAINS OF LEFT HAND PAIN, BUT TOLERABLE PAIN. O2 PROVIDED VIA NASAL CANNULA 2L. BED ON LOW POSITION, CALL LIGHT WITHIN REACH.
--- NOTE | 2018-04-22 07:04 | NUR ---
MS/RN PATIENT IS AWAKE BUT STILL SLEEPY, COMFORTABLE, NO SIGNS OF DISTRESS NOTED, ALL NEEDS ATTENDED AT THIS TIME, WILL CONTINUE TO MONITOR.
[2018-04-22 07:11] LABS: ALBUMIN 3.4 g/dL (3.4-5.0); BILIRUBIN,TOTAL 0.5 mg/dL (0.2-1.0); CREATININE 0.8 mg/dL (0.6-1.3); POTASSIUM 4.2 mmol/L (3.5-5.1); TOTAL PROTEIN, SERUM 8.1 g/dL (6.4-8.2)
[2018-04-22 08:00] VITALS: BP 108/59
[2018-04-22] MEDS: PANTOPRAZOLE 40 MG TABLET.DR PO SCH (08:16)
[2018-04-22] MEDS: DRONEDARONE HYDROCHLORIDE 400 MG TABLET PO SCH ×2 (08:16→16:53)
[2018-04-22] MEDS: METHIMAZOLE (5MG) 5 MG TABLET PO SCH (08:16)
[2018-04-22] MEDS: POTASSIUM CHLORIDE 20 MEQ TAB.PRT.SR PO SCH (08:16)
[2018-04-22] MEDS: ESCITALOPRAM OXALATE (10 MG) 10 MG TABLET PO SCH (08:17)
[2018-04-22] MEDS: FUROSEMIDE 40 MG TABLET PO SCH (08:17)
[2018-04-22] MEDS: DIGOXIN 0.125 MG TABLET PO SCH (08:17)
[2018-04-22] MEDS: ENOXAPARIN SODIUM 40 MG/0.4 ML DISP.SYRIN SQ SCH (08:18)
[2018-04-22] MEDS: METOPROLOL SUCCINATE 25 MG TAB.SR.24H PO SCH (08:18)
[2018-04-22] MEDS ORDERED: acetaZOLAMIDE SODIUM 500 MG/VIAL VIAL IV ONE (10:00)
[2018-04-22] MEDS: ACETAMINOPHEN 325 MG TABLET PO PRN ×2 (10:43→21:07)
--- NOTE | 2018-04-22 12:00 | NUR ---
RN NOTES/ BLOOD SUGAR LEVEL PT BLOOD SUGAR IS 127. NO INSULIN COVERAGE NEEDED.
[2018-04-22 16:00] VITALS: BP 106/55
[2018-04-22] MEDS: VANCOMYCIN 1.25 GM in IV D5W 500 ML IV SCH (17:09)
--- NOTE | 2018-04-22 17:14 | NUR ---
RN NOTES/ BLOOD SUGAR 1700 BLOOD SUGAR IS 127. NO INSULIN COVERAGE NEEDED
--- NOTE | 2018-04-22 19:08 | NUR ---
RN CLOSING NOTES PT NEEDS WERE ATTENDED AND ANTICIPATED. PT IS STABLE AT THIS TIME. PT CARE IS ENDORSED TO THE NIGHT RN. CALL LIGHT WITHIN PATIENT'S REACH.
--- NOTE | 2018-04-22 19:28 | NUR ---
MS/RN OPENING NOTES PATIENT IS ALERT, ORIENTED X2, ALERT BUT SLEEPY, ABLE TO RESPOND WITH TOUCH AND CAN SPEAK SIMPLE WORDS, FAMILY INVOLVE, DENIES PAIN. RESTING COMFORTABLY IN BED, ON 2LITER OXYGEN VIA NC,NATH DRAINING PINKISH BLOOD COLOR URINR, SKIN WARM TO TOUCH, ABLE TO TOLERTAE FLUID, NOTED EDEMA ON BLE. WILL MONITOR. CALL LIGHTS WIHTIN REACH. BED IN LOCK POSITION. WILL MONITOR. RECEIVED ENDORSEMENT FROM AM RN FOR HOMAR.
[2018-04-22 20:00] VITALS: BP 115/70
[2018-04-22] MEDS: ATORVASTATIN 40 MG TABLET PO SCH (21:06)
[2018-04-22] MEDS: INSULIN GLARGINE, 100 UNIT/ML CARTRIDGE SQ SCH (21:20)
--- NOTE | 2018-04-22 22:01 | NUR ---
MS.RN NOTES REPORTED NO BM FOR 4 DAYS, MOM GIVEN, WILL MONITOR
[2018-04-22] MEDS: LORAZEPAM 1 MG TABLET PO PRN (22:45)
[2018-04-23] MEDS: BLOOD SUGAR DIAGNOSTIC 1 EACH STRIP IN SCH ×4 (05:55→21:07)
--- NOTE | 2018-04-23 06:15 | NUR ---
320-2 PATIENT KEPT COMFORTABLE, SAFETY MEASURES PROVIDED, CALL LIGTHS WITHIN REACH, BED IN LOCK POSITION, PROVIDED FLUIDS, MONITORED FOR S/S OF HYPO/HYPERGLYCEMIA, SKIN WARM TO TOUCH, ON OXYGEN VIA NC AT 3L , WILL ENDORSE TO AM RN FOR HOMAR.
--- NOTE | 2018-04-23 06:18 | NUR ---
ms/rn notes PATIENT SITTING IN CHAIR, WITH OXYGEN AT 3 L NC, WEAK, BUT COOPERTAIVE TO CARE, PROVIDED FLUIDS. OFFERED FOOD, MONITOIRNG FOR SAFETY
--- NOTE | 2018-04-23 07:14 | NUR ---
RN INITIAL NOTES PT IS SITTING ON THE CHAIR. SHE IS AWAKE AND ALERT. NO SIGNS OF LABORED BREATHING. RIGHT UPPER ARM PICC LINE 2 LUMEN ACCESS IS PATENT AND INTACT. BILATERAL LOWER EXTREMITY EDEMA +2 PITTING. PT DENIES PAIN. AMBULATORY WITH ASSIST. CALL LIGHT WITHIN REACH. WILL CONTINUE TO MONITOR AND ASSESS THE PT.
[2018-04-23 07:36] LABS: BASOPHILS % (AUTO) 0.3 % (0.0-2.0); HEMATOCRIT 41 % (33-45); HEMOGLOBIN 13.1 g/dL (11.5-14.8); LYMPHOCYTES % (AUTO) 16.1 % (20.0-44.0); MEAN CORPUSCULAR HEMOGLOBIN 27 PG (26.0-33.0); MEAN CORPUSCULAR HGB CONC 32 g/dl (31.0-36.0); MEAN CORPUSCULAR VOLUME 85 fL (82-100); MONOCYTES # (AUTO) 0.9 /CMM (0.1-1.30); MONOCYTES % (AUTO) 7.3 % (2.0-12.0); NEUTROPHILS # (AUTO) 9.3 /CMM (1.8-8.9); NEUTROPHILS % (AUTO) 74.3 % (43.0-81.0); PLATELET COUNT (AUTO) 211 /CMM (150-450); RDW COEFFICIENT OF VARIATION 14.7 (11.5-15.0); RED BLOOD CELL COUNT(AUTO) 4.79 MIL/uL (4.0-5.2); WHITE BLOOD COUNT (AUTO) 12.5 K/uL (4.3-11.0)
[2018-04-23 07:49] LABS: CREATININE 0.8 mg/dL (0.6-1.3); MAGNESIUM 2.3 mg/dL (1.8-2.4); PHOSPHORUS 3.3 mg/dL (2.5-4.9); POTASSIUM 4.2 mmol/L (3.5-5.1)
[2018-04-23 08:00] VITALS: BP 116/50
[2018-04-23 08:06] LABS: CALCIUM, SERUM 8.9 mg/dL (8.5-10.1)
[2018-04-23] MEDS: DRONEDARONE HYDROCHLORIDE 400 MG TABLET PO SCH ×2 (08:24→16:23)
[2018-04-23] MEDS: ESCITALOPRAM OXALATE (10 MG) 10 MG TABLET PO SCH (08:25)
[2018-04-23] MEDS: METHIMAZOLE (5MG) 5 MG TABLET PO SCH (08:25)
[2018-04-23] MEDS: DIGOXIN 0.125 MG TABLET PO SCH (08:25)
[2018-04-23] MEDS: POTASSIUM CHLORIDE 20 MEQ TAB.PRT.SR PO SCH (08:25)
[2018-04-23] MEDS: FUROSEMIDE 40 MG TABLET PO SCH (08:25)
[2018-04-23] MEDS: METOPROLOL SUCCINATE 25 MG TAB.SR.24H PO SCH (08:26)
[2018-04-23] MEDS: PANTOPRAZOLE 40 MG TABLET.DR PO SCH (08:26)
[2018-04-23] MEDS: ENOXAPARIN SODIUM 40 MG/0.4 ML DISP.SYRIN SQ SCH (08:29)
--- NOTE | 2018-04-23 09:54 | NUR ---
ms rn notes Spoke to Dr. Oakley regarding patient medication Lasix already given 20mg tab and per MD fuentes to give lasix 40mg IVP q4hrs x 2 doses on top of the 20mg tablet we gave, and also informed MD about patient blood pressure of 116/50 dn per MD fuentes to continue Lasix medications. All orders carried out and noted.
[2018-04-23] MEDS: FUROSEMIDE 40 MG/4 ML VIAL IV SCH ×2 (10:17→13:01)
--- NOTE | 2018-04-23 10:21 | NUR ---
WOUND CARE CONSULT: PT PRESENTS WITH RASH TO PERINEUM, INNER BUTTOCKS, GROIN AND ABD FOLD AREAS, PRESENT ON ADMISSION. RECOMMENDATIONS MADE FOR SKIN CARE AND PROTECTION. DISCUSSED WITH NURSING STAFF. PT ABLE TO ASSIST WITH TURNING AND REPOSITIONING IN BED. PORTILLO SALCIDO NOTED. WILL SEE PRN. GRIFFITH IN AGREEMENT WITH PLAN OF CARE. Addendum: 04/23/18 at 1023 by GENE PACHECO WNDNU Amended: Links added.
--- NOTE | 2018-04-23 11:23 | NUR ---
inbound telemarketer notes Dr. Vee on site and came seen and examined the patient and informed also that patient is having burning sensation and ordered to discontinue noonan and put patient on tele monitor. All orders carried out and noted. On tele monitor A-fib heart rate of 67. Will continue to monitor.
[2018-04-23] MEDS: CLOTRIMAZOLE/BETAMETASONE DIPROPIONATE 15 GM TUBE TP SCH ×2 (11:27→16:24)
[2018-04-23] MEDS: VANCOMYCIN 1.25 GM in IV D5W 500 ML IV SCH (11:27)
[2018-04-23] MEDS: INSULIN REGULAR, HUMAN 100 UNIT/ML 3 ML VIAL SQ PRN ×2 (11:55→16:54)
[2018-04-23 16:00] VITALS: BP 106/63
[2018-04-23 16:08] VITALS: BP 106/63
--- NOTE | 2018-04-23 19:12 | NUR ---
television production assistant closing notes All needs provided, attended, and anticipated. Patient in stable condition at this time. On tele monitor A-fib heart rate of 74. No complaint of pain or discomfort at this time. Endorsed to next shift RN to continue care.
--- NOTE | 2018-04-23 19:15 | NUR ---
RN OPENING NOTES PT AWAKE AND RESTING IN BED. FAMILY AT BEDSIDE. NO COMPLAINTS OF PAIN, SOB OR DISTRESS AT THIS TIME. PT IS TELE MONITORED AFIB IN THE 70S. PT HAS A RIGHT UPPER ARM 2 LUMEN PICC LINE, INTACT AND PATENT. PT ABLE TO AMBULATE TO BEDSIDE COMMODE WITH ASSISTANCE. SAFETY PRECAUTIONS IN PLACE, BED IN LOWEST LOCKED POSITION, X2 SIDE RAILS UP, AND CALL LIGHT WITHIN REACH. WILL CONTINUE TO MONITOR.
[2018-04-23 20:00] VITALS: BP 136/46
[2018-04-23] MEDS: LORAZEPAM 1 MG TABLET PO PRN (21:08)
[2018-04-23] MEDS: ATORVASTATIN 40 MG TABLET PO SCH (21:08)
[2018-04-23] MEDS: INSULIN GLARGINE, 100 UNIT/ML CARTRIDGE SQ SCH (21:09)
[2018-04-24] VITALS: BP 144/52
[2018-04-24 04:00] VITALS: BP 129/49
[2018-04-24 04:09] LABS: BASOPHILS # (AUTO) 0.1 /CMM (0.0-0.2); BASOPHILS % (AUTO) 0.8 % (0.0-2.0); EOSINOPHILS % (AUTO) 1.3 % (0.0-6.0); HEMATOCRIT 40 % (33-45); HEMOGLOBIN 13.1 g/dL (11.5-14.8); LYMPHOCYTES # (AUTO) 2.6 /CMM (0.8-4.8); LYMPHOCYTES % (AUTO) 19.7 % (20.0-44.0); MEAN CORPUSCULAR HEMOGLOBIN 27 PG (26.0-33.0); MEAN CORPUSCULAR HGB CONC 33 g/dl (31.0-36.0); MEAN CORPUSCULAR VOLUME 84 fL (82-100); MONOCYTES # (AUTO) 0.8 /CMM (0.1-1.30); MONOCYTES % (AUTO) 6.1 % (2.0-12.0); NEUTROPHILS # (AUTO) 9.5 /CMM (1.8-8.9); NEUTROPHILS % (AUTO) 72.1 % (43.0-81.0); PLATELET COUNT (AUTO) 229 /CMM (150-450); RDW COEFFICIENT OF VARIATION 14.1 (11.5-15.0); WHITE BLOOD COUNT (AUTO) 13.2 K/uL (4.3-11.0)
[2018-04-24 04:23] LABS: CALCIUM, SERUM 9.2 mg/dL (8.5-10.1); CREATININE 0.8 mg/dL (0.6-1.3); MAGNESIUM 1.9 mg/dL (1.8-2.4); PHOSPHORUS 2.7 mg/dL (2.5-4.9); POTASSIUM 3.5 mmol/L (3.5-5.1)
[2018-04-24] MEDS: VANCOMYCIN 1.25 GM in IV D5W 500 ML IV SCH (05:26)
--- NOTE | 2018-04-24 06:46 | NUR ---
RN CLOSING NOTES PT AWAKE AND RESTING IN BED. NO COMPLAINTS OF PAIN, SOB OR DISTRESS OVERNIGHT. PT IS TELE MONITORED AFIB IN THE 70S. PT HAS A RIGHT UPPER ARM 2 LUMEN PICC LINE, INTACT AND PATENT. PT ABLE TO AMBULATE TO RESTROOM. SAFETY PRECAUTIONS IN PLACE, BED IN LOWEST LOCKED POSITION, X2 SIDE RAILS UP, AND CALL LIGHT WITHIN REACH. WILL ENDORSE TO DAY SHIFT NURSE FOR CONTINUITY OF CARE.
--- NOTE | 2018-04-24 07:12 | NUR ---
RN INITIAL NOTES Pt is awake. Right upper PICC line 2 lumen access is patent and intact. Pt is in cardiac monitoring showing A.Fib at 65bpm. Skin is intact. No signs of labored breathing. O2 via Nasal cannula at 3L. Stable at this time. Call light is within reach, bed on low. Will continue to monitor and assess patients.
[2018-04-24 08:00] VITALS: BP 128/65
[2018-04-24] MEDS: ENOXAPARIN SODIUM 40 MG/0.4 ML DISP.SYRIN SQ SCH (08:01)
[2018-04-24] MEDS: BLOOD SUGAR DIAGNOSTIC 1 EACH STRIP IN SCH ×2 (08:01→11:35)
[2018-04-24] MEDS: PANTOPRAZOLE 40 MG TABLET.DR PO SCH (08:02)
[2018-04-24] MEDS: ESCITALOPRAM OXALATE (10 MG) 10 MG TABLET PO SCH (08:02)
[2018-04-24] MEDS: FUROSEMIDE 40 MG TABLET PO SCH (08:02)
[2018-04-24] MEDS: CLOTRIMAZOLE/BETAMETASONE DIPROPIONATE 15 GM TUBE TP SCH ×2 (08:02→16:20)
[2018-04-24] MEDS: METHIMAZOLE (5MG) 5 MG TABLET PO SCH (08:02)
[2018-04-24] MEDS: DIGOXIN 0.125 MG TABLET PO SCH (08:04)
[2018-04-24] MEDS: POTASSIUM CHLORIDE 20 MEQ TAB.PRT.SR PO SCH (08:04)
[2018-04-24] MEDS: METOPROLOL SUCCINATE 25 MG TAB.SR.24H PO SCH (08:04)
[2018-04-24] MEDS: DRONEDARONE HYDROCHLORIDE 400 MG TABLET PO SCH ×2 (08:07→16:20)
--- NOTE | 2018-04-24 11:38 | NUR ---
RN NOTES blood sugar at 1138 is 108. No insulin coverage needed
[2018-04-24 16:00] VITALS: BP 118/55
--- NOTE | 2018-04-24 17:05 | NUR ---
HADOOP ANALYST NOTES Pt was awake and alert. No signs of labored breathing. Skin is intact, Lotrisone cream was applied to the abdominal fold, groin, and sacral area. Diagnosis and educational teaching handouts provided to the patient and daughter Francheska. PICC line w/ 2 lumen access is patent and intact. Follow up instructions with Dr. Tejada on given to the patient and daughter Francheska. Pneumonia Vaccine and Influenza vaccine not given but education about risks and benefits were discussed with the patient and family. Patient left on a wheelchair with daughter Francheska. Pt is in stable condition at this time.
[2018-04-25] MEDS ORDERED: VANCOMYCIN 1.25 GM in IV D5W 500 ML IV SCH (05:00)
== END 2018-04-24 17:00 | disposition home health service (06) | DRG 288 ==
LOC: ER 21:51 → TELE 04-21 00:17 → MED 04-21 08:19 → TELE 04-23 12:23 → MED 04-24 08:53
PROVIDERS: ADMIT Hospitalist; ATTEND Hospitalist
PROC: 02HV33Z Insertion of Infusion Device into Superior Vena Cava, Percutaneous Approach (ICD-10-PCS; principal; 2018-04-21)
PROC: B548ZZA Ultrasonography of Superior Vena Cava, Guidance (ICD-10-PCS; 2018-04-21)
DX: I33.0 Acute and subacute infective endocarditis (principal); J96.01 Acute respiratory failure with hypoxia; I50.33 Acute on chronic diastolic (congestive) heart failure; L03.114 Cellulitis of left upper limb; J98.11 Atelectasis; I11.0 Hypertensive heart disease with heart failure; I08.3 Combined rheumatic disorders of mitral, aortic and tricuspid valves; F41.9 Anxiety disorder, unspecified; I48.2 Chronic atrial fibrillation; Z95.3 Presence of xenogenic heart valve; Z95.1 Presence of aortocoronary bypass graft; Z79.899 Other long term (current) drug therapy; Z79.84 Long term (current) use of oral hypoglycemic drugs; B95.4 Other streptococcus as the cause of diseases classified elsewhere; M17.11 Unilateral primary osteoarthritis, right knee; Z91.81 History of falling; E11.9 Type 2 diabetes mellitus without complications; E66.01 Morbid (severe) obesity due to excess calories; Z68.32 Body mass index [BMI] 32.0-32.9, adult; I27.20 Pulmonary hypertension, unspecified; I25.10 Atherosclerotic heart disease of native coronary artery without angina pectoris; E78.5 Hyperlipidemia, unspecified
CPT/HCPCS: 36415; 71045-TC; 73130-TC; 73200-TC; 80048-TC; 80053-TC; 80061-TC; 80202-TC; 82962-TC; 83735-TC; 83880; 84100-TC; 84484-TC; 84550-TC; 85025-TC; 87040-TC; 87081-TC; A4606; J0696; J1120; J1650; J1815; J1940; J2270; J2405; J3370; J7030; J7060; Z7610